=== PATIENT | male | born 1970 | race Caucasian/White ===

== ENCOUNTER 2021-07-15 18:22 | Emergency (ER) | payer OTHER ==
[2021-07-15 19:10] VITALS: BP 118/92; PULSE 120; TEMP 97.4; BMI 24.3
[2021-07-15] MEDS ORDERED: BACITRACIN 15 GM TUBE TOPICAL OINTMENT TP ONE (19:31)
[2021-07-15] MEDS ORDERED: BACITRACIN 0.9 GM PACKET ONE (19:48)
== END 2021-07-15 20:00 | disposition left against medical advice (07) ==
LOC: JER 18:22
DX: T20.20XA Burn of second degree of head, face, and neck, unspecified site, initial encounter (principal); R09.02 Hypoxemia; X04.XXXA Exposure to ignition of highly flammable material, initial encounter
CPT/HCPCS: 99283-25